=== PATIENT | female | born 1970 | race Caucasian/White ===

== ENCOUNTER 2017-06-12 13:44 | Emergency (ER) | payer OTHER ==
[2017-06-12 14:38] LABS: KETONE, URINE AUTO RFX NEGATIVE (NEGATIVE); LEUKOCYTE ESTERASE UR AUTO RFX 2+ (NEGATIVE); NITRITE, URINE AUTO RFX POSITIVE (NEGATIVE); RBC, URINE AUTO RFX 12 /HPF (0-3); SPECIFIC GRAVITY UR AUTO RFX 1.006 (1.002-1.035); SQUAM EPITHELIAL CELL UR AURFX 0 /HPF (0-6); WBC, URINE AUTO RFX 123 /HPF (0-3)
[2017-06-12] MEDS: ACETAMINOPHEN 325 MG TAB PO ×2 (15:29)
[2017-06-12] MEDS: CIPROFLOXACIN 500 MG TAB PO ×2 (15:29)
[2017-06-12] MEDS: PHENAZOPYRIDINE 100 MG TAB PO ×2 (15:29)
== END 2017-06-12 15:38 | disposition home or self-care (01) ==
LOC: M ED 13:44
DX: N10 Acute pyelonephritis (principal); N30.00 Acute cystitis without hematuria; F17.210 Nicotine dependence, cigarettes, uncomplicated; Z88.8 Allergy status to other drugs, medicaments and biological substances; Z79.899 Other long term (current) drug therapy; Z79.891 Long term (current) use of opiate analgesic
CPT/HCPCS: 81001